=== PATIENT | female | born 1960 | race Hispanic/Latino ===

== ENCOUNTER 2024-01-13 18:47 | Inpatient (IN) | payer MEDICARE ==
[2024-01-13] VITALS (17 sets, daily range): BP systolic 106–169; BP diastolic 33–96; PULSE 48–74; RESP 6–26; O2SAT 93–97
[~2024-01-13] VITALS: Ht 162.6 cm; Wt 104.3 kg
[~2024-01-13 18:47] MED LIST: ASPI-1005 PO; ATOR40TA69 PO; CLOP-31 PO; FOLI0.8T2 PO; Folic Acid/Vitamin B Comp W-C PO; LOSA-418 PO; METO25 PO; NITR0.4T50 SL; Nitroglycerin 0.4MG Sl Tab SL; SEVE800T27 PO; Sevelamer Hcl PO
[2024-01-13] MEDS ORDERED: NIFE-40 PO (19:48)
[2024-01-13] MEDS ORDERED: LORA10TA7 PO (19:48)
[2024-01-13] MEDS ORDERED: METO25TA6 PO (19:48)
[2024-01-13] MEDS ORDERED: INSU100V12 SQ (19:48)
[2024-01-13] MEDS ORDERED: CINA30TA5 PO (19:48)
[2024-01-13] MEDS ORDERED: LINA72CA PO (19:48)
[2024-01-13] MEDS: NOREPINEPHRIN 8MG/250ML NS 250 ML IV ONE (20:00)
[2024-01-13 21:03] LABS: ABG BASE EXCESS -2.3 mmol/L (-2.0-3.0); ABG HCO3 22.4 mmol/L (21.0-28.0); ABG OXYGEN SATURATION 51.2 % (95.0-99.0); ABG PCO2 38 mmHg (32-45); ABG PH 7.391 (7.35-7.450); CARBON MONOXIDE 0.1; DEVICE COMMENT LEFT RAD; HHb 48.8; PO2, ARTERIAL BG < 45.0 mmHg (83.0-108.0); VENT MODE, BG 5LNC (ROOM AIR)
[2024-01-13 21:28] LABS: BASOPHILS # (AUTO) 0.05 K/uL (0.00-0.20); BASOPHILS % (AUTO) 0.5 % (0.0-5.0); EOSINOPHILS # (AUTO) 0.08 K/uL (0.00-0.70); EOSINOPHILS % (AUTO) 0.8 % (0.0-8.0); HEMATOCRIT 27.2 % (36-48); LYMPHOCYTES # (AUTO) 3.5 K/uL (1.0-4.8); MEAN CORPUSCULAR HGB CONC 30.5 g/dL (32.0-36.0); MONOCYTES # (AUTO) 0.7 K/uL (0.1-1.0); MONOCYTES % (AUTO) 6.6 % (3.0-13.0); NEUTROPHILS # (AUTO) 6.1 K/uL (1.8-7.7); NEUTROPHILS % (AUTO) 58.2 % (40.0-77.0); PLATELET COUNT (AUTO) 209 K/uL (130-400); RED BLOOD CELL COUNT(AUTO) 2.59 MIL/uL (4.00-5.50); RED CELL DISTRIBUTION WIDTH 15.9 % (11.0-15.5); WHITE BLOOD COUNT (AUTO) 10.5 K/uL (4.8-10.8)
[2024-01-13 21:39] LABS: INR 0.95 (0.85-1.15); PROTHROMBIN TIME 11.3 SEC (9.6-11.6)
[2024-01-13 21:40] LABS: PARTIAL THROMBOPLASTIN TIME 25.9 SEC (26.3-35.5)
[2024-01-13 21:44] LABS: BILIRUBIN,TOTAL 0.4 mg/dL (0.2-1.0); MAGNESIUM 2.1 mg/dL (1.80-2.40); PHOSPHORUS 5.5 mg/dL (2.5-4.9); TOTAL PROTEIN, SERUM 7.1 g/dL (6.0-8.3)
[2024-01-13 21:51] LABS: B-TYPE NATRIURETIC PEPTIDE 2830 pg/mL (0-100)
[2024-01-13 22:01] LABS: CREATININE 9.6 mg/dL (0.5-1.0)
[2024-01-13] MEDS ORDERED: IOHEXOL-350 75 ML VIAL IV ONE (22:10)
[2024-01-13] MEDS: ATORVASTATIN 40 MG TABLET PO SCH (23:15)
[2024-01-13] MEDS: ASPIRIN 81 MG EC TAB PO ONE (23:15)
[2024-01-13] MEDS: PANTOPRAZOLE 40 MG/VIAL IVP SCH (23:15)
[2024-01-13] MEDS: CLOPIDOGREL 75MG TAB PO ONE (23:15)
[2024-01-14] VITALS (124 sets, daily range): BP systolic 33–167; BP diastolic 24–107; PULSE 51–94; RESP 11–42; TEMP 97.9–98; O2SAT 93–100
[2024-01-14] MEDS ORDERED: DOCUSATE SODIUM 100 MG CAP PO PRN
[2024-01-14] MEDS ORDERED: LACTULOSE 20 GM/30 ML UDCUP PO PRN
[2024-01-14] MEDS ORDERED: ALBUTEROL 0.083% 2.5 MG/3 ML INH IH PRN
[2024-01-14] MEDS ORDERED: IPRATROPIUM 0.5 MG/2.5 ML INH IH PRN
[2024-01-14] MEDS ORDERED: ACETAMINOPHEN 650 MG SUPPOSITORY RC PRN
[2024-01-14] MEDS ORDERED: ONDANSETRON 4MG INJ IVP PRN
[2024-01-14] MEDS ORDERED: HYDRALAZINE 20MG/ML VIAL IV PRN
[2024-01-14] MEDS ORDERED: TEMAZEPAM 15 MG CAPSULE PO PRN
[2024-01-14] MEDS: IPRATROPIUM/ALBUTEROL SULFATE 3 ML SOLUTION IH SCH (01:51)
[2024-01-14 04:56] LABS: HEMATOCRIT 25.1 % (36-48); MEAN CORPUSCULAR HEMOGLOBIN 32.4 pg (27.0-33.0); MEAN CORPUSCULAR HGB CONC 31.1 g/dL (32.0-36.0); MEAN CORPUSCULAR VOLUME 104.1 fL (79-99); RED BLOOD CELL COUNT(AUTO) 2.41 MIL/uL (4.00-5.50); RED CELL DISTRIBUTION WIDTH 15.8 % (11.0-15.5)
[2024-01-14 05:05] LABS: HEMOGLOBIN A1C 6.6 % (4.0-6.0)
[2024-01-14 05:12] LABS: ALBUMIN 2.9 g/dL (3.5-5.0); BILIRUBIN,TOTAL 0.4 mg/dL (0.2-1.0); MAGNESIUM 2.2 mg/dL (1.80-2.40); PHOSPHORUS 6.6 mg/dL (2.5-4.9); POTASSIUM 4.6 mmol/L (3.5-5.1); THYROID STIMULATING HORMONE 3.75 uIU/mL (0.36-3.74); TOTAL PROTEIN, SERUM 6.9 g/dL (6.0-8.3)
[2024-01-14 05:18] LABS: CREATININE 9.8 mg/dL (0.5-1.0)
[2024-01-14] MEDS: INSULIN HUMULIN R 100 UNIT/ML 3ML SQ SCH (05:59)
[2024-01-14] MEDS: CLOPIDOGREL 75MG TAB PO SCH (08:28)
[2024-01-14] MEDS: ASPIRIN 81 MG EC TAB PO SCH (08:29)
[2024-01-14 08:51] LABS: ABG HCO3 22.5 mmol/L (21.0-28.0); ABG OXYGEN SATURATION 91.9 % (95.0-99.0); ABG PCO2 42 mmHg (32-45); ABG PH 7.346 (7.35-7.450); CARBON MONOXIDE 0.3; DEVICE COMMENT RB; HHb 8.1; PO2, ARTERIAL BG 74.1 mmHg (83.0-108.0); VENT MODE, BG NC (ROOM AIR)
[2024-01-14] MEDS ORDERED: FENTANYL CITRATE PF 50 MCG/1 ML 2ML VIAL ONE (11:10)
[2024-01-14] MEDS ORDERED: IOHEXOL 350 MG/ML 100ML INFUS..BTL IV ONE (11:10)
[2024-01-14] MEDS ORDERED: MIDAZOLAM HCL 1 MG/ML 2ML VIAL ONE (11:10)
[2024-01-14] MEDS ORDERED: NITROGLYCERIN 50MG VIAL ONE (11:11)
[2024-01-14] MEDS ORDERED: HEPARIN 10,000 UNIT/10ML (1,000 UNIT/ML) VIAL ONE (11:11)
[2024-01-14] MEDS ORDERED: LIDOCAINE HCL 400MG/20ML VIAL ONE (11:12)
[2024-01-14] MEDS ORDERED: DEXTROSE 50%-WATER 50 ML DISP.SYRIN IV PRN (12:00)
[2024-01-14] MEDS ORDERED: 0.9%NACL 1000ML 1,000 ML IV SCH (12:00)
[2024-01-14] MEDS ORDERED: GLUCAGON 1MG KIT 1 MG ML IM PRN (12:00)
[2024-01-14] MEDS: HEPARIN 5,000 UNIT VIAL IJ PRN (15:53)
[2024-01-15] VITALS (46 sets, daily range): BP systolic 84–155; BP diastolic 34–73; PULSE 81–91; RESP 11–30; O2SAT 93–100
[2024-01-15 04:40] LABS: MEAN CORPUSCULAR HEMOGLOBIN 32.9 pg (27.0-33.0); MEAN CORPUSCULAR HGB CONC 31.3 g/dL (32.0-36.0); MEAN CORPUSCULAR VOLUME 105.3 fL (79-99); PLATELET COUNT (AUTO) 153 K/uL (130-400); RED BLOOD CELL COUNT(AUTO) 2.28 MIL/uL (4.00-5.50); RED CELL DISTRIBUTION WIDTH 15.4 % (11.0-15.5); WHITE BLOOD COUNT (AUTO) 5.8 K/uL (4.8-10.8)
[2024-01-15 04:54] LABS: INR 0.95 (0.85-1.15); PROTHROMBIN TIME 11.2 SEC (9.6-11.6)
[2024-01-15 04:55] LABS: PARTIAL THROMBOPLASTIN TIME 28.1 SEC (26.3-35.5)
[2024-01-15 05:08] LABS: BAND NEUTROPHILS % (MANUAL) 1 % (0-2); EOSINOPHILS % (MANUAL) 3 % (1-6); LYMPHOCYTES % (MANUAL) 39 % (22-44); MAN.DIFF COMMENT-IMPRESSION MANUAL DIFFERENTIAL; MONOCYTES % (MANUAL) 3 % (2-9); SEGMENTED NEUTROPHILS % 54 % (40-70); TOTAL CELLS COUNTED 100
[2024-01-15 05:09] LABS: PLATELET MORPHOLOGY COMMENT ADEQUATE
[2024-01-15 05:25] LABS: ALBUMIN 2.7 g/dL (3.5-5.0); BILIRUBIN,TOTAL 0.4 mg/dL (0.2-1.0); CREATININE 7.5 mg/dL (0.5-1.0); PHOSPHORUS 6.2 mg/dL (2.5-4.9); POTASSIUM 3.5 mmol/L (3.5-5.1); TOTAL PROTEIN, SERUM 6.5 g/dL (6.0-8.3)
[2024-01-15] MEDS ORDERED: IPRATROPIUM/ALBUTEROL SULFATE 3 ML SOLUTION IH PRN (10:30)
[2024-01-15] MEDS ORDERED: VASOPRESSIN 20 UNITS/ML 1ML VIAL ONE (13:24)
[2024-01-15] MEDS ORDERED: PROPOFOL 10 MG/ML 20ML VIAL IV ONE (13:25)
[2024-01-15 15:23] LABS: HEMATOCRIT 27.2 % (36-48)
[2024-01-16] VITALS (26 sets, daily range): BP systolic 117–150; BP diastolic 40–74; PULSE 74–84; RESP 12–22; TEMP 98.3–98.6; O2SAT 95–99
[2024-01-16 04:28] LABS: BASOPHILS # (AUTO) 0.01 K/uL (0.00-0.20); BASOPHILS % (AUTO) 0.2 % (0.0-5.0); EOSINOPHILS # (AUTO) 0.21 K/uL (0.00-0.70); EOSINOPHILS % (AUTO) 3.6 % (0.0-8.0); HEMATOCRIT 22.8 % (36-48); IMMATURE GRANULOCYTE ABSOLUTE 0.02 K/uL (0-1); LYMPHOCYTES # (AUTO) 1.9 K/uL (1.0-4.8); LYMPHOCYTES % (AUTO) 32.3 % (21.0-51.0); MEAN CORPUSCULAR HEMOGLOBIN 32.1 pg (27.0-33.0); MEAN CORPUSCULAR HGB CONC 31.1 g/dL (32.0-36.0); MEAN CORPUSCULAR VOLUME 103.2 fL (79-99); MONOCYTES # (AUTO) 0.5 K/uL (0.1-1.0); MONOCYTES % (AUTO) 8.7 % (3.0-13.0); NEUTROPHILS # (AUTO) 3.2 K/uL (1.8-7.7); NEUTROPHILS % (AUTO) 54.9 % (40.0-77.0); PLATELET COUNT (AUTO) 150 K/uL (130-400); RED BLOOD CELL COUNT(AUTO) 2.21 MIL/uL (4.00-5.50); RED CELL DISTRIBUTION WIDTH 15.1 % (11.0-15.5); WHITE BLOOD COUNT (AUTO) 5.9 K/uL (4.8-10.8)
[2024-01-16 04:43] LABS: ALBUMIN 2.5 g/dL (3.5-5.0); BILIRUBIN,TOTAL 0.4 mg/dL (0.2-1.0); MAGNESIUM 2.1 mg/dL (1.80-2.40); PHOSPHORUS 7.5 mg/dL (2.5-4.9); POTASSIUM 4.3 mmol/L (3.5-5.1); TOTAL PROTEIN, SERUM 6.3 g/dL (6.0-8.3)
[2024-01-16] MEDS ORDERED: (Linaclotide (Linzess) 72 MCG) PO PRN (11:00)
[2024-01-16] MEDS: SEVELAMER HCL 800 MG TABLET PO SCH (14:58)
[2024-01-16] MEDS: EPOETIN ALFA-EPBX (NON-ESRD) 10,000 UNIT/ML VIAL SQ SCH (14:58)
[2024-01-16] MEDS ORDERED: SILVER SULFADIAZINE CREAM 400 GM TP SCH (15:30)
[2024-01-16] MEDS: METOPROLOL TARTRATE 25 MG TAB PO SCH (20:35)
[2024-01-17 03:06] VITALS: BP 119/40; PULSE 75; RESP 16
[2024-01-17 03:37] LABS: BASOPHILS # (AUTO) 0.02 K/uL (0.00-0.20); BASOPHILS % (AUTO) 0.3 % (0.0-5.0); EOSINOPHILS # (AUTO) 0.19 K/uL (0.00-0.70); EOSINOPHILS % (AUTO) 3.2 % (0.0-8.0); HEMATOCRIT 24.6 % (36-48); IMMATURE GRANULOCYTE ABSOLUTE 0.02 K/uL (0-1); LYMPHOCYTES # (AUTO) 2.2 K/uL (1.0-4.8); LYMPHOCYTES % (AUTO) 36.9 % (21.0-51.0); MEAN CORPUSCULAR HEMOGLOBIN 31.7 pg (27.0-33.0); MEAN CORPUSCULAR HGB CONC 31.3 g/dL (32.0-36.0); MEAN CORPUSCULAR VOLUME 101.2 fL (79-99); MONOCYTES # (AUTO) 0.5 K/uL (0.1-1.0); MONOCYTES % (AUTO) 7.8 % (3.0-13.0); NEUTROPHILS # (AUTO) 3.1 K/uL (1.8-7.7); NEUTROPHILS % (AUTO) 51.5 % (40.0-77.0); PLATELET COUNT (AUTO) 185 K/uL (130-400); RED BLOOD CELL COUNT(AUTO) 2.43 MIL/uL (4.00-5.50); RED CELL DISTRIBUTION WIDTH 14.9 % (11.0-15.5); WHITE BLOOD COUNT (AUTO) 5.9 K/uL (4.8-10.8)
[2024-01-17 04:15] LABS: ALBUMIN 2.7 g/dL (3.5-5.0); BILIRUBIN,TOTAL 0.5 mg/dL (0.2-1.0); CREATININE 6.4 mg/dL (0.5-1.0); MAGNESIUM 1.9 mg/dL (1.80-2.40); PHOSPHORUS 5.3 mg/dL (2.5-4.9); POTASSIUM 4.1 mmol/L (3.5-5.1); TOTAL PROTEIN, SERUM 6.7 g/dL (6.0-8.3)
[2024-01-17 06:35] VITALS: PULSE 74; RESP 20; O2SAT 97
[2024-01-17 07:00] VITALS: BP 151/58; PULSE 76; RESP 22
[2024-01-17 07:54] VITALS: O2SAT 99
[2024-01-17] MEDS: INSULIN GLARGINE 100 UNITS/ML 10 ML VIAL SQ SCH (09:00)
[2024-01-17] MEDS ORDERED: NON-FORMULARY MEDICATION 1 EACH (Folic Acid/Vitamin B Comp W-C (Nephro-Vite Tablet) 0.8 MG PO SCH (09:00)
[2024-01-17] MEDS ORDERED: INSULIN DETEMIR 34 UNIT SQ SCH (09:00)
[2024-01-17] MEDS: LOSARTAN 50 MG TABLET PO SCH (09:44)
[2024-01-17] MEDS: NIFEDIPINE ER 30 MG TAB PO SCH (09:44)
[2024-01-17] MEDS: CINACALCET 30 MG TAB PO SCH (09:44)
[2024-01-17] MEDS: Vitamin B Complex/Vit C/Folic Acid PO SCH (09:44)
[2024-01-17] MEDS: LORATADINE 10 MG TABLET PO SCH (09:44)
[2024-01-17] MEDS: ACETAMINOPHEN 325 MG TAB PO PRN (09:46)
[2024-01-17] MEDS: SILVER SULFADIAZINE CREAM 50 GM TP SCH (09:49)
[2024-01-17 11:00] VITALS: BP 123/56; PULSE 68; RESP 20
[2024-01-17] MEDS ORDERED: CLOP-31 PO (11:31)
[2024-01-17] MEDS ORDERED: PANT40TA PO (15:01)
== END 2024-01-17 13:50 | disposition home or self-care (01) | DRG 368 ==
LOC: 2CH 18:47 → 2DH 01-16 16:42
PROVIDERS: ADMIT Internal Medicine Critical Care Medicine; ATTEND Internal Medicine Critical Care Medicine
PROC: 4A023N7 Measurement of Cardiac Sampling and Pressure, Left Heart, Percutaneous Approach (ICD-10-PCS; principal; 2024-01-14)
PROC: B2111ZZ Fluoroscopy of Multiple Coronary Arteries using Low Osmolar Contrast (ICD-10-PCS; 2024-01-14)
PROC: B44GZZZ Ultrasonography of Left Lower Extremity Arteries (ICD-10-PCS; 2024-01-14)
PROC: 5A1D70Z Performance of Urinary Filtration, Intermittent, Less than 6 Hours Per Day (ICD-10-PCS; 2024-01-14)
PROC: 0DJ08ZZ Inspection of Upper Intestinal Tract, Via Natural or Artificial Opening Endoscopic (ICD-10-PCS; 2024-01-15)
PROC: 5A1D70Z Performance of Urinary Filtration, Intermittent, Less than 6 Hours Per Day (ICD-10-PCS; 2024-01-16)
DX: K21.01 Gastro-esophageal reflux disease with esophagitis, with bleeding (principal); G93.41 Metabolic encephalopathy; I21.A1 Myocardial infarction type 2; J96.01 Acute respiratory failure with hypoxia; R57.0 Cardiogenic shock; N18.6 End stage renal disease; K29.51 Unspecified chronic gastritis with bleeding; E66.2 Morbid (severe) obesity with alveolar hypoventilation; D62 Acute posthemorrhagic anemia; I12.0 Hypertensive chronic kidney disease with stage 5 chronic kidney disease or end stage renal disease; J98.11 Atelectasis; E87.70 Fluid overload, unspecified; I25.10 Atherosclerotic heart disease of native coronary artery without angina pectoris; E11.22 Type 2 diabetes mellitus with diabetic chronic kidney disease; E78.5 Hyperlipidemia, unspecified; E03.9 Hypothyroidism, unspecified; E87.5 Hyperkalemia; I44.7 Left bundle-branch block, unspecified; J44.9 Chronic obstructive pulmonary disease, unspecified; K80.20 Calculus of gallbladder without cholecystitis without obstruction; Z68.39 Body mass index [BMI] 39.0-39.9, adult; I25.2 Old myocardial infarction; Z95.5 Presence of coronary angioplasty implant and graft; Z99.2 Dependence on renal dialysis; Z79.02 Long term (current) use of antithrombotics/antiplatelets; Z79.82 Long term (current) use of aspirin; Z79.899 Other long term (current) drug therapy
CPT/HCPCS: 36415; 36600; 43235; 71045; 71270; 80053; 82435; 82803; 82947; 82948; 83036; 83605; 83735; 83880; 84100; 84132; 84295; 84443; 84484; 85014; 85018; 85025; 85027; 85378; 85610; 85730; 86850; 86900; 86901; 90935; 93005; 93458; 93970; 94640; 94664; 99156; 99157; C1760; C1894; C9113; G0378; J1644; J2250; J2704; J3010; J3490; Q9967; A4215; A4222; A4223; A4620; Q5106; Q9965

== ENCOUNTER 2024-01-26 16:37 | Inpatient (IN) | payer MEDICARE ==
[~2024-01-26] VITALS: Ht 162.6 cm; Wt 109.4 kg
[~2024-01-26 16:37] MED LIST changes: +CINA30TA5 PO; -Folic Acid/Vitamin B Comp W-C PO; +INSU100V12 SQ; +LINA72CA PO; +LORA10TA7 PO; -METO25 PO; +METO25TA6 PO; +NIFE-40 PO; -NITR0.4T50 SL; -Nitroglycerin 0.4MG Sl Tab SL; +PANT40TA PO; -Sevelamer Hcl PO
[2024-01-26 17:00] LABS: BASOPHILS # (AUTO) 0.03 K/uL (0.00-0.20); BASOPHILS % (AUTO) 0.4 % (0.0-5.0); EOSINOPHILS # (AUTO) 0.12 K/uL (0.00-0.70); EOSINOPHILS % (AUTO) 1.5 % (0.0-8.0); HEMATOCRIT 26.5 % (36-48); IMMATURE GRANULOCYTE ABSOLUTE 0.04 K/uL (0-1); LYMPHOCYTES # (AUTO) 2.8 K/uL (1.0-4.8); LYMPHOCYTES % (AUTO) 34.4 % (21.0-51.0); MEAN CORPUSCULAR HEMOGLOBIN 32.8 pg (27.0-33.0); MEAN CORPUSCULAR HGB CONC 31.3 g/dL (32.0-36.0); MEAN CORPUSCULAR VOLUME 104.7 fL (79-99); MONOCYTES # (AUTO) 0.3 K/uL (0.1-1.0); MONOCYTES % (AUTO) 3.7 % (3.0-13.0); NEUTROPHILS # (AUTO) 4.8 K/uL (1.8-7.7); NEUTROPHILS % (AUTO) 59.5 % (40.0-77.0); PLATELET COUNT (AUTO) 206 K/uL (130-400); RED BLOOD CELL COUNT(AUTO) 2.53 MIL/uL (4.00-5.50); RED CELL DISTRIBUTION WIDTH 15.6 % (11.0-15.5); WHITE BLOOD COUNT (AUTO) 8.1 K/uL (4.8-10.8)
[2024-01-26] MEDS ORDERED: PHARMACY COMMUNICATION MISC SCH (17:00)
[2024-01-26 17:16] LABS: ALBUMIN 2.7 g/dL (3.5-5.0); BILIRUBIN,TOTAL 0.4 mg/dL (0.2-1.0); MAGNESIUM 2.5 mg/dL (1.80-2.40); POTASSIUM 4.9 mmol/L (3.5-5.1); TOTAL PROTEIN, SERUM 6.8 g/dL (6.0-8.3)
[2024-01-26 17:21] LABS: CREATININE 14.2 mg/dL (0.5-1.0)
[2024-01-26] MEDS: GLUCAGON 1MG KIT 1 MG ML IV ONE (17:24)
[2024-01-26] MEDS: METOCLOPRAMIDE 10 MG/2 ML VIAL ONE (17:37)
[2024-01-26] MEDS: MIDODRINE HCL 5 MG TABLET ONE (17:38)
[2024-01-26] MEDS: GLUCAGON 1MG KIT 1 MG ML ONE ×2 (17:38)
[2024-01-26] MEDS: MIDODRINE HCL 5 MG TABLET PO ONE (17:59)
[2024-01-26] MEDS: ATROPINE 1MG SYG IVP STA (19:03)
[2024-01-26] MEDS: ATROPINE 1MG SYG IVP ONE (19:03)
[2024-01-26] MEDS: ATROPINE 1MG SYG IVP SCH (20:17)
[2024-01-26] MEDS: DOPAMINE 800MG/D5 250ML 250 ML IV ONE (20:17)
[2024-01-26 20:23] VITALS: PULSE 94; RESP 16; O2SAT 100
[2024-01-26] MEDS ORDERED: ONDANSETRON 4MG INJ IVP PRN (20:30)
[2024-01-26] MEDS ORDERED: DOPAMINE 800MG/D5 250ML 250 ML IV PRN (20:30)
[2024-01-26] MEDS ORDERED: ACETAMINOPHEN 650 MG SUPPOSITORY RC PRN (20:30)
[2024-01-26] MEDS ORDERED: ALBUTEROL 0.083% 2.5 MG/3 ML INH IH PRN (20:30)
[2024-01-26] MEDS ORDERED: DOCUSATE SODIUM 100 MG CAP PO PRN (20:30)
[2024-01-26] MEDS ORDERED: TEMAZEPAM 15 MG CAPSULE PO PRN (20:30)
[2024-01-26] MEDS ORDERED: ACETAMINOPHEN 325 MG TAB PO PRN (20:30)
[2024-01-26] MEDS ORDERED: LACTULOSE 20 GM/30 ML UDCUP PO PRN (20:30)
[2024-01-26] MEDS: INSULIN HUMULIN R 100 UNIT/ML 3ML SQ SCH (21:00)
[2024-01-26 21:51] LABS: ABG HCO3 20.6 mmol/L (21.0-28.0); ABG PCO2 40 mmHg (32-45); ABG PH 7.327 (7.35-7.450); CARBON MONOXIDE 0.3; PO2, ARTERIAL BG 75.4 mmHg (83.0-108.0); VENT MODE, BG 8LNC (ROOM AIR)
[2024-01-26 22:11] LABS: RAPID GROUP A STREP negative (NEGATIVE)
[2024-01-26 22:19] LABS: SARS-CoV-2, RNA, NAAT NEGATIVE SARS CoV-2 (NEGATIVE)
[2024-01-26 22:21] LABS: INFLUENZA TYPE A Negative For Type A (NEGATIVE); INFLUENZA TYPE B Negative For Type B (NEGATIVE)
[2024-01-26 23:15] VITALS: BP 122/51; PULSE 54; RESP 17
[2024-01-26 23:30] VITALS: PULSE 53; RESP 13; O2SAT 98
[2024-01-26 23:31] VITALS: PULSE 52; RESP 16; O2SAT 98
[2024-01-26 23:45] VITALS: BP 134/46; PULSE 50; RESP 18
[2024-01-27] VITALS (133 sets, daily range): BP systolic 72–176; BP diastolic 26–84; PULSE 41–80; RESP 5–158; O2SAT 92–100
[2024-01-27 04:11] LABS: BASOPHILS # (AUTO) 0.06 K/uL (0.00-0.20); BASOPHILS % (AUTO) 0.6 % (0.0-5.0); HEMATOCRIT 30.8 % (36-48); IMMATURE GRANULOCYTE ABSOLUTE 0.05 K/uL (0-1); LYMPHOCYTES # (AUTO) 3.4 K/uL (1.0-4.8); LYMPHOCYTES % (AUTO) 33.7 % (21.0-51.0); MEAN CORPUSCULAR HEMOGLOBIN 33.4 pg (27.0-33.0); MEAN CORPUSCULAR HGB CONC 31.8 g/dL (32.0-36.0); MEAN CORPUSCULAR VOLUME 105.1 fL (79-99); MONOCYTES # (AUTO) 0.8 K/uL (0.1-1.0); MONOCYTES % (AUTO) 7.5 % (3.0-13.0); NEUTROPHILS # (AUTO) 5.8 K/uL (1.8-7.7); NEUTROPHILS % (AUTO) 56.7 % (40.0-77.0); PLATELET COUNT (AUTO) 235 K/uL (130-400); RED BLOOD CELL COUNT(AUTO) 2.93 MIL/uL (4.00-5.50); RED CELL DISTRIBUTION WIDTH 15.5 % (11.0-15.5); WHITE BLOOD COUNT (AUTO) 10.2 K/uL (4.8-10.8)
[2024-01-27 04:20] LABS: MAGNESIUM 2.2 mg/dL (1.80-2.40); PHOSPHORUS 7.1 mg/dL (2.5-4.9); POTASSIUM 4.7 mmol/L (3.5-5.1)
[2024-01-27 04:26] LABS: CREATININE 13.7 mg/dL (0.5-1.0)
[2024-01-27] MEDS: PANTOPRAZOLE 40 MG/VIAL IVP SCH (08:58)
[2024-01-27] MEDS: CLOPIDOGREL 75MG TAB PO SCH (09:00)
[2024-01-27] MEDS: ENOXAPARIN SODIUM 30 MG/0.3 ML SQ SCH (09:00)
[2024-01-27] MEDS: ASPIRIN 81 MG EC TAB PO SCH (09:00)
[2024-01-27 09:43] LABS: POTASSIUM 4.3 mmol/L (3.5-5.1)
[2024-01-27 09:46] LABS: CREATININE 13.7 mg/dL (0.5-1.0)
[2024-01-27] MEDS ORDERED: COMPOUND IV MISC 1 EACH IVSOLN MISC PRN (14:00)
[2024-01-27] MEDS ORDERED: COMPOUND IV REFRIGERATED 1 EACH IVSOLN MISC PRN (14:00)
[2024-01-27 15:30] LABS: POTASSIUM 4.5 mmol/L (3.5-5.1)
[2024-01-27 15:34] LABS: CREATININE 13.6 mg/dL (0.5-1.0)
[2024-01-27] MEDS: EPOETIN ALFA-EPBX (NON-ESRD) 10,000 UNIT/ML VIAL SQ SCH (15:54)
[2024-01-27] MEDS: SODIUM BICARB 50MEQ 50ML VIAL IV ONE (17:30)
[2024-01-27] MEDS: SILVER SULFADIAZINE CREAM 50 GM TP SCH (17:30)
[2024-01-27] MEDS: ALBUTEROL 0.083% 2.5 MG/3 ML INH IH SCH (18:20)
[2024-01-27 22:05] LABS: POTASSIUM 4.8 mmol/L (3.5-5.1)
[2024-01-27 22:47] LABS: CREATININE 13.4 mg/dL (0.5-1.0)
[2024-01-28] VITALS (58 sets, daily range): BP systolic 85–158; BP diastolic 33–77; PULSE 69–83; RESP 10–28; O2SAT 92–100
[2024-01-28 04:21] LABS: BASOPHILS # (AUTO) 0.02 K/uL (0.00-0.20); BASOPHILS % (AUTO) 0.3 % (0.0-5.0); EOSINOPHILS # (AUTO) 0.18 K/uL (0.00-0.70); EOSINOPHILS % (AUTO) 2.9 % (0.0-8.0); HEMATOCRIT 28.6 % (36-48); IMMATURE GRANULOCYTE ABSOLUTE 0.02 K/uL (0-1); LYMPHOCYTES # (AUTO) 2.3 K/uL (1.0-4.8); LYMPHOCYTES % (AUTO) 37.3 % (21.0-51.0); MEAN CORPUSCULAR HGB CONC 31.5 g/dL (32.0-36.0); MEAN CORPUSCULAR VOLUME 104.8 fL (79-99); MONOCYTES # (AUTO) 0.4 K/uL (0.1-1.0); MONOCYTES % (AUTO) 6.9 % (3.0-13.0); NEUTROPHILS # (AUTO) 3.2 K/uL (1.8-7.7); NEUTROPHILS % (AUTO) 52.3 % (40.0-77.0); PLATELET COUNT (AUTO) 189 K/uL (130-400); RED BLOOD CELL COUNT(AUTO) 2.73 MIL/uL (4.00-5.50); RED CELL DISTRIBUTION WIDTH 15.7 % (11.0-15.5); WHITE BLOOD COUNT (AUTO) 6.1 K/uL (4.8-10.8)
[2024-01-28 04:45] LABS: % IRON SATURATION 33.7 % (22-44)
[2024-01-28 05:28] LABS: BILIRUBIN,TOTAL 0.4 mg/dL (0.2-1.0); MAGNESIUM 2.4 mg/dL (1.80-2.40); PHOSPHORUS 7.7 mg/dL (2.5-4.9); POTASSIUM 3.8 mmol/L (3.5-5.1); THYROID STIMULATING HORMONE 3.97 uIU/mL (0.36-3.74); TOTAL PROTEIN, SERUM 7.3 g/dL (6.0-8.3); URIC ACID 8.1 mg/dL (2.6-7.2)
[2024-01-28 05:48] LABS: CREATININE 13.6 mg/dL (0.5-1.0)
[2024-01-28] MEDS: ASPIRIN 81 MG EC TAB ONE (09:57)
[2024-01-28] MEDS: CLOPIDOGREL 75MG TAB ONE (09:57)
[2024-01-28 10:14] LABS: CREATININE 13.6 mg/dL (0.5-1.0)
[2024-01-28] MEDS ORDERED: ALBUTEROL 0.083% 2.5 MG/3 ML INH IH PRN (18:00)
[2024-01-29] VITALS (12 sets, daily range): BP systolic 133–148; BP diastolic 45–81; PULSE 70–81; RESP 16–22; O2SAT 95–100
[2024-01-29 04:23] LABS: HEMATOCRIT 27.9 % (36-48); MEAN CORPUSCULAR HEMOGLOBIN 32.5 pg (27.0-33.0); MEAN CORPUSCULAR HGB CONC 30.8 g/dL (32.0-36.0); MEAN CORPUSCULAR VOLUME 105.3 fL (79-99); PLATELET COUNT (AUTO) 165 K/uL (130-400); RED BLOOD CELL COUNT(AUTO) 2.65 MIL/uL (4.00-5.50); RED CELL DISTRIBUTION WIDTH 15.3 % (11.0-15.5); WHITE BLOOD COUNT (AUTO) 5.6 K/uL (4.8-10.8)
[2024-01-29 04:38] LABS: MAGNESIUM 2.3 mg/dL (1.80-2.40); PHOSPHORUS 7.8 mg/dL (2.5-4.9); POTASSIUM 3.6 mmol/L (3.5-5.1)
[2024-01-29 06:09] LABS: BASOPHILS % (MANUAL) 1 % (0-2); EOSINOPHILS % (MANUAL) 6 % (1-6); LYMPHOCYTES % (MANUAL) 41 % (22-44); MAN.DIFF COMMENT-IMPRESSION MANUAL DIFFERENTIAL; MONOCYTES % (MANUAL) 3 % (2-9); PLATELET MORPHOLOGY COMMENT ADEQUATE; REACTIVE LYMPHOCYTES 2 % (0-0); SEGMENTED NEUTROPHILS % 47 % (40-70); TOTAL CELLS COUNTED 100; WBC MORPHOLOGY REACTIVE LYMPHS 1+
[2024-01-29] MEDS: CLOPIDOGREL 75MG TAB PO SCH (09:08)
[2024-01-29] MEDS: ASPIRIN 81 MG EC TAB PO SCH (09:08)
[2024-01-29] MEDS: SEVELAMER HCL 800 MG TABLET PO SCH (16:27)
[2024-01-30 03:30] VITALS: BP 112/50; PULSE 77; RESP 18
[2024-01-30 04:15] LABS: BASOPHILS # (AUTO) 0.03 K/uL (0.00-0.20); BASOPHILS % (AUTO) 0.5 % (0.0-5.0); EOSINOPHILS # (AUTO) 0.19 K/uL (0.00-0.70); EOSINOPHILS % (AUTO) 3.3 % (0.0-8.0); HEMATOCRIT 28.4 % (36-48); IMMATURE GRANULOCYTE ABSOLUTE 0.03 K/uL (0-1); LYMPHOCYTES # (AUTO) 2.4 K/uL (1.0-4.8); LYMPHOCYTES % (AUTO) 42.1 % (21.0-51.0); MEAN CORPUSCULAR HEMOGLOBIN 33.1 pg (27.0-33.0); MEAN CORPUSCULAR HGB CONC 31.7 g/dL (32.0-36.0); MEAN CORPUSCULAR VOLUME 104.4 fL (79-99); MONOCYTES # (AUTO) 0.4 K/uL (0.1-1.0); MONOCYTES % (AUTO) 7.6 % (3.0-13.0); NEUTROPHILS # (AUTO) 2.7 K/uL (1.8-7.7); PLATELET COUNT (AUTO) 176 K/uL (130-400); RED BLOOD CELL COUNT(AUTO) 2.72 MIL/uL (4.00-5.50); RED CELL DISTRIBUTION WIDTH 15.2 % (11.0-15.5); WHITE BLOOD COUNT (AUTO) 5.8 K/uL (4.8-10.8)
[2024-01-30 05:25] LABS: PHOSPHORUS 7.5 mg/dL (2.5-4.9); POTASSIUM 3.6 mmol/L (3.5-5.1)
[2024-01-30 06:49] VITALS: PULSE 78; RESP 20; O2SAT 98
[2024-01-30 07:00] VITALS: BP 132/64; PULSE 82; RESP 20
[2024-01-30 07:35] VITALS: O2SAT 95
== END 2024-01-30 10:00 | disposition home or self-care (01) | DRG 291 ==
LOC: EDH 16:37 → EDHIP 19:20 → 2CV 20:50 → EDHIP 20:59 → 2CV 21:52 → 2BH 01-27 04:09 → 2AH 01-28 14:54
PROVIDERS: ADMIT Internal Medicine Critical Care Medicine; ATTEND Internal Medicine Critical Care Medicine
PROC: 3E1M39Z Irrigation of Peritoneal Cavity using Dialysate, Percutaneous Approach (ICD-10-PCS; principal; 2024-01-26)
DX: I13.2 Hypertensive heart and chronic kidney disease with heart failure and with stage 5 chronic kidney disease, or end stage renal disease (principal); G93.41 Metabolic encephalopathy; J96.21 Acute and chronic respiratory failure with hypoxia; I50.33 Acute on chronic diastolic (congestive) heart failure; K20.91 Esophagitis, unspecified with bleeding; R57.0 Cardiogenic shock; N18.6 End stage renal disease; D62 Acute posthemorrhagic anemia; E66.2 Morbid (severe) obesity with alveolar hypoventilation; J98.11 Atelectasis; L03.311 Cellulitis of abdominal wall; Z20.822 Contact with and (suspected) exposure to COVID-19; K29.70 Gastritis, unspecified, without bleeding; Z99.2 Dependence on renal dialysis; E11.22 Type 2 diabetes mellitus with diabetic chronic kidney disease; I25.10 Atherosclerotic heart disease of native coronary artery without angina pectoris; E78.00 Pure hypercholesterolemia, unspecified; E83.39 Other disorders of phosphorus metabolism; I25.2 Old myocardial infarction; I44.1 Atrioventricular block, second degree; Z68.38 Body mass index [BMI] 38.0-38.9, adult; Z79.02 Long term (current) use of antithrombotics/antiplatelets; Z79.82 Long term (current) use of aspirin; Z95.5 Presence of coronary angioplasty implant and graft
CPT/HCPCS: 36415; 36600; 71045; 80048; 80053; 82270; 82435; 82728; 82803; 82947; 82948; 83540; 83550; 83605; 83735; 83880; 84100; 84132; 84295; 84443; 84484; 84550; 85018; 85025; 86850; 86900; 86901; 87635; 87804; 87880; 93005; 93306; 93356; 94640; 94664; 96374; 96375; 99291; C9113; G0378; J0461; J1265; J1610; J2405; J2765; J3490; Q5106